=== PATIENT | female | born 1970 | race Two or more races ===

== ENCOUNTER 2017-08-17 09:25 | Inpatient (IN) | payer OTHER ==
[~2017-08-17] VITALS: Ht 147.3 cm; Wt 81.2 kg
[2017-08-17] VITALS (9 sets, daily range): BP systolic 107–152; BP diastolic 52–84
[~2017-08-17 09:25] MED LIST: ceFAZolin 1gm in D5W 55ml IVP ONE; celeBREX 200mg Cap **SURGERY PATIENTS ONLY ORAL ONE; oxyCONTIN 20mg tab ORAL ONE
[2017-08-17] MEDS ORDERED: NKM (11:00)
--- NOTE | 2017-08-17 11:08 | Pre-Procedure Note/Attestation ---
Pre-Procedure Note/Attestation Complete Prior to Procedure Planned Procedure: left Procedure Narrative: prasanth Indications for Procedure Pre-Operative Diagnosis: left hip oa Attestation I attest that I discussed the nature of the procedure; its benefits; risks and complications; and alternatives (and the risks and benefits of such alternatives ), prior to the procedure, with the patient (or the patient's legal client service representative). I attest that, if there was a reasonable possibility of needing a blood transfusion, the patient (or the patient's legal client service representative) was given the [facility] standardized written summary, pursuant to the Edgar Alejandra Blood Safety Act ([place] Health and Safety Code # 1645, as amended). I attest that I re-evaluated the patient just prior to the surgery and that there has been no change in the patient's H&P, except as documented below: ARNOL CHRISTINE Aug 17, 2017 11:08
--- NOTE | 2017-08-17 11:09 | Operative Note - PDOC ---
Operative Note Operative Note Pre-op Diagnosis: left hip oa Procedure: l prasanth Post-op Diagnosis: same as pre-op plus Operative Findings: consistent w/pre-op dx studies Anesthesia: regional Specimen: none Complications: none Condition: stable Estimated Blood Loss: minimal Drains: none Implant(s) used?: Yes ARNOL CHRISTINE Aug 17, 2017 11:09
[2017-08-17] MEDS ORDERED: oxyCODONE 5mg IR tab ORAL PRN (11:15)
[2017-08-17] MEDS ORDERED: Milk of Magnesia 30ml Ud ORAL PRN (11:15)
[2017-08-17] MEDS ORDERED: Morphine Sulfate 2mg/ml Inj IVP PRN ×2 (11:15)
[2017-08-17] MEDS ORDERED: Bupivacaine 0.5% Inj 30 ml vial INJ ONE (12:59)
[2017-08-17] MEDS ORDERED: cloNIDine 1000mcg/10ml inj ONE (13:00)
--- NOTE | 2017-08-17 14:11 | Anethesia Preoperative Eval ---
Anesthesia Pre-op PMH/ROS General Date of Evaluation: Aug 17, 2017 Time of Evaluation: 14:26 Anesthesiologist: Bill ASA Score: ASA 3 Mallampati Score Class I : Soft palate, uvula, fauces, pillars visible Class II: Soft palate, uvula, fauces visible Class III: Soft palate, base of uvula visible Class IV: Only hard plate visible Mallampati Classification: Class II Surgeon: David Diagnosis: L Hip Pain Surgical Procedure: L Total Hip Arthroplasty Anesthesia History: none Family History: no anesthesia problems Allergies: Coded Allergies: No Known Allergies (Unverified , 08/16/17) Medications: see eMAR Past Medical History Cardiovascular: Reports: HTN Other: obesity - BMI 41 PSxH Narrative: C/SX3 Anesthesia Pre-op Phys. Exam Physician Exam Last Vital Signs Date Time Temp Pulse Resp B/P (MAP) Pulse Ox O2 Delivery O2 Flow Rate FiO2 08/17/17 11:22 98.4 92 20 139/72 99 Room Air 98.4 Constitutional: NAD Neurologic: CN 2-12 intact Cardiovascular: RRR Respiratory: CTA Gastrointestinal: S/NT/ND Airway Exam Mallampati Score: Class II MO: full ROM: limited Teeth: intact Anesthesia Pre-op A/P Labs Urine Test Test 08/17/17 10:25 Urine HCG, Qualitative Negative Risk Assessment & Plan Assessment: ASA 3 Plan: GA, BIS, Spinal, Lumbar Plexus Block Status Change Before Surgery: No Pre-Antibiotics Dru Grams Ancef IV Given Within 1 Hr of Incision: Yes Time Given: 14:56 Evans Khan MD Aug 17, 2017 14:11
[2017-08-17] MEDS ORDERED: Bupivacaine 0.25% Inj 30ml INJ ONE (14:13)
--- NOTE | 2017-08-17 14:13 | Immediate Post-Op Evaluation ---
Immediate Post-Op Evalulation Immediate Post-Op Evalulation Procedure: L Total Hip Arthroplasty Date of Evaluation: Aug 17, 2017 Time of Evaluation: 17:15 IV Fluids: 900 LR Blood Products: 0 Estimated Blood Loss: 75 Urinary Output: 250 Blood Pressure Systolic: 132 Blood Pressure Diastolic: 58 Pulse Rate: 94 Respiratory Rate: 16 O2 Sat by Pulse Oximetry: 100 Temperature (Fahrenheit): 100.6 Pain Score (1-10): 1 Nausea: No Vomiting: No Complications 0 Patient Status: awake, reacts, patent, none Hydration Status: adequate Dru Grams Ancef IV Given Within 1 Hr of Incision: Yes Time Given: 14:56 Evans Khan MD Aug 17, 2017 14:13
[2017-08-17] MEDS ORDERED: Ketorolac 30mg Inj ONE (14:14)
[2017-08-17] MEDS ORDERED: Kenalog-40 1ml Vial ONE (14:14)
[2017-08-17] MEDS ORDERED: Morphine Sulfate PF 10 ML ONE (14:14)
[2017-08-17] MEDS ORDERED: NeoSporin Gu Irrig 1ml Amp IRRIG ONE (14:15)
[2017-08-17] MEDS ORDERED: EPINEPHrine 1mg/1ml Amp ONE (14:15)
[2017-08-17] MEDS ORDERED: Bacitracin 50000 Units Vial ONE (14:15)
[2017-08-17] MEDS ORDERED: Duramorph PF 10mg/10ml amp IV ONE (14:30)
[2017-08-17] MEDS ORDERED: Metoprolol 5mg/5ml Inj ONE (14:30)
[2017-08-17] MEDS ORDERED: NS Irrig 1000ml ONE (14:30)
[2017-08-17] MEDS ORDERED: Sterile Water Irrig 1000ml IRRIG ONE (14:30)
[2017-08-17] MEDS ORDERED: Propofol 200mg/20ml IV ONE (14:30)
[2017-08-17] MEDS ORDERED: Midazolam 2mg/2ml Inj ONE (14:30)
[2017-08-17] MEDS ORDERED: Lidocaine 1% MPF 10mg/ml 5ml ONE (14:30)
[2017-08-17] MEDS ORDERED: Dexamethasone 4mg/ml vial ONE (14:30)
[2017-08-17] MEDS ORDERED: Alfentanil 2ml Inj ONE (14:30)
[2017-08-17] MEDS ORDERED: LR 1000ml ONE (14:30)
[2017-08-17] MEDS ORDERED: LR 1000ml 1,000 ML IVLG SCH (14:55)
[2017-08-17] MEDS ORDERED: Hydromorphone 0.5mg/0.5ml inj IVP PRN (15:00)
[2017-08-17] MEDS ORDERED: LORazepam Inj 2mg/ml 1ml IV PRN (15:00)
[2017-08-17] MEDS ORDERED: HYDROcodone/Acetamin 7.5/325 tab ORAL PRN (15:00)
[2017-08-17] MEDS ORDERED: Labetalol 5mg/ml 20ml vial IV PRN (15:00)
[2017-08-17] MEDS ORDERED: fentaNYL 100 mcg/2 mL IV PRN (15:00)
[2017-08-17] MEDS ORDERED: Atropine Inj 1mg/10ml Syr IV PRN (15:00)
[2017-08-17] MEDS ORDERED: Ketorolac 30mg Inj IV PRN ×2 (15:00)
[2017-08-17] MEDS ORDERED: Midazolam 2mg/2ml Inj IVP PRN (15:00)
[2017-08-17] MEDS ORDERED: Norco 5mg/325mg tab ORAL PRN (15:00)
[2017-08-17] MEDS ORDERED: oxyCODONE HCL/Acetaminophen 5/325mg ORAL PRN (15:00)
[2017-08-17] MEDS ORDERED: DiphenhydrAMINE 50mg/ml Inj IVP PRN (15:00)
[2017-08-17] MEDS ORDERED: Tranexamic Acid 1,000 MG in NS 65 ML IVPB ONE (15:30)
--- NOTE | 2017-08-17 16:10 | 48 Hour Post Anesthesia Eval ---
Post Anesthesia Evaluation Procedure: L Total Hip Arthroplasty Date of Evaluation: Aug 19, 2017 Time of Evaluation: 09:00 Blood Pressure Systolic: 123 0: 95 Pulse Rate: 78 Respiratory Rate: 16 Temperature (Fahrenheit): 98 O2 Sat by Pulse Oximetry: 99 Airway: patent Nausea: No Vomiting: No Hydration Status: adequate Mental Status/LOC: patient returned to baseline Post-Anesthesia Complications: none Follow-up care needed: ready to discharge Harsh Rocha M.D. Aug 17, 2017 16:09
--- NOTE | 2017-08-17 18:24 | Diagnostic Imaging Report ---
Indication: Intraoperative images Technique: One view of the pelvis Comparison: none Findings: Intraoperative images demonstrate an acetabular cup and a broach in the left proximal femur. There is been resection of the femoral head and neck. A Miranda catheter is in place Impression: Intraoperative imaging, as described
[2017-08-17] MEDS ORDERED: D5 1/2NS w/KCl 20mEq 1,000 ML IV SCH (19:45)
[2017-08-17] MEDS: Docusate 100mg cap ORAL SCH (20:11)
[2017-08-17] MEDS: oxyCONTIN 20mg tab ORAL SCH (20:12)
[2017-08-17] MEDS: ceFAZolin sod 2 GM in D5W 110 ML IV SCH (23:10)
[2017-08-18] MEDS: ceFAZolin sod 2 GM in D5W 110 ML IV SCH (06:03)
[2017-08-18] MEDS ORDERED: celeBREX 200mg Cap **SURGERY PATIENTS ONLY ORAL SCH (09:00)
[2017-08-18] MEDS ORDERED: Metoprolol Tartrate 50mg tab ORAL ONE ×2 (09:15→09:45)
[2017-08-18] MEDS: Docusate 100mg cap ORAL SCH ×3 (10:03→20:08)
[2017-08-18 10:04] VITALS: BP 147/88
[2017-08-18] MEDS: oxyCONTIN 20mg tab ORAL SCH ×2 (10:04→20:08)
[2017-08-18 10:05] LABS: HEMATOCRIT 36.8 % (37.0-47.0); HEMOGLOBIN 12.7 G/DL (12.0-16.0); MEAN CORPUSCULAR VOLUME 89 FL (80-99); PLATELET COUNT 465 K/UL (150-450); RED BLOOD COUNT 4.15 M/UL (4.20-5.40); RED CELL DISTRIBUTION WIDTH 11.9 % (11.6-14.8); WHITE BLOOD COUNT 21.7 K/UL (4.8-10.8)
[2017-08-18 10:13] LABS: ANION GAP 8 mmol/L (5-15); BLOOD UREA NITROGEN 10 mg/dL (7-18); CALCIUM 9.1 MG/DL (8.5-10.1); CARBON DIOXIDE 25 MMOL/L (21-32); CHLORIDE 102 MMOL/L (98-107); CREATININE 0.8 MG/DL (0.55-1.30); POTASSIUM 3.9 MMOL/L (3.5-5.1); SODIUM 134 MMOL/L (136-145)
--- NOTE | 2017-08-18 10:33 | Diagnostic Imaging Report ---
Indication: Pelvic pain Technique: XRAY Pelvis 1v Comparison: 08/17/2017 Findings: Patient is status post left hip arthroplasty. Hardware alignment is satisfactory. Operative soft tissue changes are present. Impression: Status post left hip arthroplasty.
[2017-08-18] MEDS: D5 1/2NS w/KCl 20mEq 1,000 ML IV SCH ×2 (11:37→18:30)
--- NOTE | 2017-08-18 18:29 | General Progress Note ---
Assessment/Plan Status Narrative s/p tkr periopertiave antibiotc prophyalxis gicherelle post op elevated blood sugr she is pre diabetic has hgba1c 6.2 pt ot had tachycardia given ivf adn metoprolol better no chest painno sob. Subjective Date patient seen: Aug 18, 2017 Time patient seen: 18:27 Constitutional: Reports: no symptoms HEENT: Reports: no symptoms Cardiovascular: Reports: no symptoms Respiratory: Reports: no symptoms Allergies: Coded Allergies: No Known Allergies (Unverified , 08/16/17) Objective Last 24 Hour Vital Signs Date Time Temp Pulse Resp B/P (MAP) Pulse Ox O2 Delivery O2 Flow Rate FiO2 08/18/17 10:04 116 147/88 08/18/17 10:04 99.0 08/17/17 20:12 99.0 Intake and Output 08/17/17 08/18/17 19:00 07:00 Intake Total 1200 ml 320 ml Output Total 325 ml 1300 ml Balance 875 ml -980 ml Intake Oral 320 ml IV Total 1200 ml Output Urine Total 250 ml 1300 ml Estimated Blood Loss 75 ml # Voids 2 Laboratory Tests 08/18/17 09:15: White Blood Count 21.7H, Red Blood Count 4.15L, Hemoglobin 12.7, Hematocrit 36.8L, Mean Corpuscular Volume 89, Mean Corpuscular Hemoglobin 30.6, Mean Corpuscular Hemoglobin Concent 34.5, Red Cell Distribution Width 11.9, Platelet Count 465H, Mean Platelet Volume 6.3L, Neutrophils (%) (Auto) , Lymphocytes (%) (Auto) , Monocytes (%) (Auto) , Eosinophils (%) (Auto) , Basophils (%) (Auto) , Differential Total Cells Counted 100, Neutrophils % (Manual) 90H, Lymphocytes % (Manual) 4L, Monocytes % (Manual) 4, Eosinophils % (Manual) 0, Basophils % ( Manual) 0, Band Neutrophils 2, Platelet Estimate Adequate, Platelet Morphology Normal, Red Blood Cell Morphology Normal, Sodium Level 134L, Potassium Level 3.9 , Chloride Level 102, Carbon Dioxide Level 25, Anion Gap 8, Blood Urea Nitrogen 10, Creatinine 0.8, Estimat Glomerular Filtration Rate > 60, Glucose Level 231H , Calcium Level 9.1, Troponin I 0.000 08/18/17 13:05: Troponin I 0.002 08/18/17 17:09: Troponin I 0.000 Height (Feet): 4 Height (Inches): 10.00 Weight (Pounds): 179 General Appearance: WD/WN EENT: PERRL/EOMI Neck: non-tender Cardiovascular: no JVD Respiratory/Chest: lungs clear FERNANDA PUENTES Aug 18, 2017 18:29
[2017-08-18] MEDS ORDERED: NEURONTIN100 MG ORAL (20:21)
[2017-08-18] MEDS ORDERED: ECOTRIN325 MG ORAL (20:22)
[2017-08-18] MEDS ORDERED: PERCOCET 10-321 EACH ORAL (20:23)
--- NOTE | 2017-08-19 16:27 | Cardiology Report ---
APPROVED REPORT EKG Measurement Heart [id number] Normal sinus rhythm with sinus arrhythmia Cannot rule out Anterior infarct, age undetermined Abnormal ECG
--- NOTE | 2017-08-19 22:15 | Operative Note - Dictated ---
DATE OF OPERATION: 08/17/2017 PREOPERATIVE DIAGNOSIS: Left hip traumatic osteoarthritis. POSTOPERATIVE DIAGNOSIS: Left hip traumatic osteoarthritis. PROCEDURE: Left total hip arthroplasty complicated secondary to dysplasia. SURGEON: Andres Hernandez M.D. ANESTHESIA: Spinal. INDICATION FOR PROCEDURE: The patient is a pleasant female with hip dysplasia. After involved in a slip and fall, she had progressive pain and symptoms around left hip making it difficult to ambulate. She failed conservative treatment and therefore was indicated for operative fixation with left total hip arthroplasty. Risks, limitations, expectations, and complications of the procedure was discussed in detail. All questions addressed. DESCRIPTION OF PROCEDURE: After informed consent was obtained, the patient was brought into the operating room and placed under spinal anesthesia. The patient then carefully placed in a beach-chair position. Left hip was prepped and draped in a sterile manner. Time-out was performed. Posterolateral skin incision was then made. Fascia oriana was incised. Piriformis and short external rotators were cut. Hip was dislocated. In situ neck was then made. Anterior and inferior acetabular retractors were placed. Excess labrum was removed to better visualize the acetabulum. Sequential reaming up to 50 was performed. A 52 acetabular shell was then placed with a neutral liner. Sequential broaching up to size 1 was performed, 1 and 0 [id number] combo was selected. Sling was slightly long and the femoral component seemed to be little bit small. Therefore, a #1 broach was seated little bit further. Additional 3 mm of calcar was removed and a size #2 broach was able to be placed. Once that was done, hip was taken through range of motion, flexion 110 degrees, 90 flexion internal rotation was 60, extension external rotation was stable. Leg lengths were clinically equal. At this point, the trial components were removed. Implants were impacted into place. The capsule was reapproximated through drill holes to the greater trocar. Fascia oriana was closed with #1 Vicryl suture, 2-0 Vicryl suture, 3-0 Monocryl sutures, and Dermabond dressing. Compression dressing was applied. The patient was awoken and taken to recovery with stable vital signs. ESTIMATED BLOOD LOSS: 50 mL. COMPLICATIONS: None. SPECIMENS: Femoral head. IMPLANTS: Include a size #2 Accolade stem, 52 mm Tritanium D cup with a neutral liner with a 0 [id number] high offset head. Andres Hernandez M.D. DR: MEGHNA JOB#: [id number] CC: [email or web address]
--- NOTE | 2017-08-21 14:27 | Discharge Summary ---
Discharge Summary Hospital Course Date of Admission Aug 17, 2017 at 09:25 Date of Discharge Aug 18, 2017 at 20:30 Admitting Diagnosis Left hip traumatic osteoarthritis. Reason for Hospitalization: elective surgery HPI Wendy Buchanan is a 47 year old female who was admitted on Aug 17, 2017 at 09: 25 for Left hip traumatic osteoarthritis. Patient was admitted for elective surgery Consultations dr Quintana - Procedures PROCEDURE: Left total hip arthroplasty dysplasia. Hospital Course s/p surgery perioperative abx given pain management, controlled ambulated with PT/OT, fall precautions maintained dressing C/D/I tachy , but no SOB, no CP troponin x 3 negative ECG no acute ischemic changes - SR with sinus arrhythmia IVF and BB x 1 , tachycardia resolved tolerated diet ; encouraged oral fluids voided freely bowel regimen instituted elevated blood sugar, patient with pre-diabetes [id number] educated on low carbohydrate no concentrated sweets diet and need to lose weight and increase physical activity ( after stable from surgical STANDIOINT) patient was cleared for dc scripts provided oupt fup with surgeon as advised hip surgery precautions discussed in detail FINAL DIAGNOSIS Left hip traumatic osteoarthritis. s/p Left total hip arthroplasty prediabetes ( with elevated postop glucose) Discharge Medications Continued Medications: Aspirin* (Ecotrin*) 325 Mg Tablet. 325 MG ORAL BID, TAB Gabapentin* (Neurontin*) 100 Mg Capsule 100 MG ORAL THREE TIMES A DAY, #15 CAP 0 Refills Oxycodone Hcl/Acetaminophen 10-325 Mg Tablet (Percocet 10-325 Mg Tablet*) 1 Each Tablet 1 TAB ORAL Q6H PRN for For Pain, #30 TAB 0 Refills Discharge Condition Upon Discharge: stable Discharge Disposition Patient was discharged to Home () Discharge Diagnoses: Discharge Instructions Discharge Instructions Special Instructions I have been assigned to complete a D/C Summary on this account. I was not involved in the patient management Lori Jones NP (Vanchtein) Aug 21, 2017 14:27
== END 2017-08-18 20:30 | disposition home or self-care (01) | DRG 470 ==
LOC: SDSOVERFLO 09:25 → 3E 18:20
PROC: 0SRB0JA Replacement of Left Hip Joint with Synthetic Substitute, Uncemented, Open Approach (ICD-10-PCS; principal; 2017-08-17 15:00)
DX: M12.552 Traumatic arthropathy, left hip (principal); Z68.37 Body mass index [BMI] 37.0-37.9, adult; I10 Essential (primary) hypertension; E66.3 Overweight; R73.03 Prediabetes; R00.0 Tachycardia, unspecified
CPT/HCPCS: 36415; 72170; 80048; 81025; 82962; 84484; 85007; 85025; 86850; 86900; 86901; 87081; 93005; 94003; 94150; J2250; J2405; J3490